=== PATIENT | male | born 2000 | race Caucasian/White ===

== ENCOUNTER 2021-08-08 10:14 | Emergency (ER) | payer OTHER ==
[~2021-08-08] VITALS: Ht 180.3 cm; Wt 62.6 kg
[2021-08-08 10:31] VITALS: BP 121/74
== END 2021-08-08 12:39 | disposition left against medical advice (07) ==
LOC: ER 10:14
DX: M54.9 Dorsalgia, unspecified (principal); F41.9 Anxiety disorder, unspecified; M54.50 Low back pain, unspecified; Z53.21 Procedure and treatment not carried out due to patient leaving prior to being seen by health care provider